=== PATIENT | male | born 1970 | race Hispanic/Latino ===

== ENCOUNTER 2021-01-27 19:58 | Emergency (ER) | payer SELFPAY ==
[2021-01-27 20:46] VITALS: BP 189/90
--- NOTE | 2021-01-27 23:52 | Emergency Department Report ---
ED Male HPI - General Chief complaint: Urogenital-Male Stated complaint: STD Time Seen by Provider: 01/27/21 20:48 Source: patient Mode of arrival: Ambulatory Limitations: No Limitations - History of Present Illness Initial comments: 30-year-old male presents emerge department complaining of no sexual contact for the last 6 months due to having some some issues with his penis of the last 1 to 2 weeks there is becoming more difficult to retract his foreskin has noted some swelling and some pruritus with some vague pains and some discharge of unknown etiology states that he has been working on his job and extremely wet environment contact with extremely dirty water and after doing the job for a few days he noticed some some changes to the penile skin that has continued to progress since the onset. Ports no fevers, chills, sweats. No chest pain palpitation, no nausea, no vomiting MD Complaint: other -: Gradual Radiation: none Severity: mild Quality: burning Improves with: none Worsens with: none denies other symptoms - Related Data Sexually active: No Previous Rx's Medication Instructions Recorded Last Taken Type Ciclopirox 0.77% (Nf) [Loprox 1 applic TP BID #30 tube 01/27/21 Unknown Rx 0.77% (Nf)] Fluconazole [Diflucan TAB] 150 mg PO QDAY #60 tablet 01/27/21 Unknown Rx Allergies Allergy/AdvReac Type Severity Reaction Status Date / Time No Known Allergies Allergy Unverified 01/27/21 21:48 ED Review of Systems ROS: Stated complaint: STD Other details as noted in HPI Comment: All other systems reviewed and negative ED Past Medical Hx - Past Medical History Previous Medical History?: No Additional medical history: hx: MRSA - Medications Home Medications: Home Medications Medication Instructions Recorded Confirmed Last Taken Type Ciclopirox 0.77% (Nf) [Loprox 1 applic TP BID #30 tube 01/27/21 Unknown Rx 0.77% (Nf)] Fluconazole [Diflucan TAB] 150 mg PO QDAY #60 tablet 01/27/21 Unknown Rx ED Physical Exam - General Limitations: No Limitations General appearance: alert, in no apparent distress - Head Head exam: Present: atraumatic, normocephalic - Eye Eye exam: Present: normal appearance, PERRL, EOMI Pupils: Present: normal accommodation - ENT ENT exam: Present: normal exam, normal orophraynx, mucous membranes moist, TM's normal bilaterally ( ) - Neck Neck exam: Present: normal inspection - Respiratory Respiratory exam: Present: normal lung sounds bilaterally. Absent: respiratory distress - Cardiovascular Cardiovascular Exam: Present: regular rate, normal rhythm. Absent: systolic murmur, diastolic murmur, rubs, gallop - GI/Abdominal GI/Abdominal exam: Present: soft, normal bowel sounds - Rectal Rectal exam: Present: deferred - Extremities Exam Extremities exam: Present: normal inspection - Back Exam Back exam: Present: normal inspection - Neurological Exam Neurological exam: Present: alert, oriented X3 - Psychiatric Psychiatric exam: Present: normal affect, normal mood - Skin Skin exam: Present: warm, dry, intact, normal color. Absent: rash ED Course Vital Signs 01/27/21 20:36 Temperature 98.2 F Pulse Rate 102 H Respiratory 16 Rate Blood Pressure 189/90 [Right] O2 Sat by Pulse 97 Oximetry Critical care attestation.: If time is entered above; I have spent that time in minutes in the direct care of this critically ill patient, excluding procedure time. ED Disposition Clinical Impression: Phimosis of penis Disposition: 01 HOME / SELF CARE / HOMELESS Is pt being admited?: No Does the pt Need Aspirin: No Condition: Stable Instructions: Phimosis, Pediatric, Genital Yeast Infection, Male, Clotrimazole skin cream, lotion, or solution Prescriptions: Fluconazole [Diflucan TAB] 150 mg PO QDAY #60 tablet Ciclopirox 0.77% (Nf) [Loprox 0.77% (Nf)] 1 applic TP BID #30 tube Referrals: PRIMARY CARE, [Primary Care Provider] - 3-5 Days [facility] [Provider Group] - 3-5 Days
== END 2021-01-28 00:23 | disposition home or self-care (01) ==
LOC: ED 19:58
DX: N47.1 Phimosis (principal)
CPT/HCPCS: 99282